=== PATIENT | male | born 1965 | race Caucasian/White ===

== ENCOUNTER → 2019-05-23 | Outpatient (CLI) | payer OTHER ==
[~2019-05-23] MED LIST: AMOX-355 PO; AUGMENTIN 500 MG PO; DULO60CA6 PO; HYDR1TAB PO; MNTL10T PO; MULT-608 PO; OMEG1CAP51 PO; PREDNISONE 20 MG PO; SIMV40TA4 PO
--- NOTE | 2019-05-23 15:43 | Diagnostic Imaging Report ---
PROCEDURE: CT sinuses without contrast TECHNIQUE: Multiple contiguous axial images were obtained through the sinuses without the use of intravenous contrast. Coronal and sagittal reformations were then performed. Auto Exposure Controls were utilized during the CT exam to meet ALARA standards for radiation dose reduction. INDICATION: Multiple sinus infections over the last 6 months. COMPARISON: No prior studies are available for comparison. FINDINGS: The frontal sinus is clear. There is very mild mucosal thickening of ethmoid air cells particularly on the right side. The sphenoid sinus is clear. The maxillary sinuses appear to be predominantly clear. No air-fluid levels are seen. Ostiomeatal complexes are patent. Nasal septum is midline. Mastoids appear to be well aerated. IMPRESSION: Mild ethmoid sinus mucosal disease. The study is otherwise unremarkable. Dictated by: Dictated on workstation # [id number]
== END ==
LOC: RAD FS 15:21
PROVIDERS: ATTEND Otolaryngology Otolaryngology/Facial Plastic Surgery
DX: J32.2 Chronic ethmoidal sinusitis (principal)
CPT/HCPCS: 70486

== ENCOUNTER → 2019-10-30 | Outpatient (CLI) | payer OTHER ==
--- NOTE | 2019-10-30 14:55 | Diagnostic Imaging Report ---
INDICATION: Pain in right wrist for 3 weeks. Time of exam 2:07 PM Multiple views right wrist were obtained. The distal radius and ulna are intact. The carpus appears intact. Metacarpals are unremarkable. No fractures are seen. IMPRESSION: No acute bony abnormality is detected. Dictated by: Dictated on workstation # [id number]
== END ==
LOC: RAD FS 13:46
PROVIDERS: ATTEND Nurse Practitioner
DX: M25.531 Pain in right wrist (principal)
CPT/HCPCS: 73110

== ENCOUNTER → 2020-01-12 | Outpatient (CLI) | payer OTHER ==
--- NOTE | 2020-01-12 10:42 | Diagnostic Imaging Report ---
Indication: Left knee pain. Time of exam: 9:52 AM 3 views of the left knee were obtained. Alignment is normal. There is mild medial and patellofemoral compartmental degenerative change with joint space narrowing and marginal spurring. No fracture, dislocation or effusion is seen. Impression: Degenerative changes. No acute bony abnormality is detected. Dictated by: Dictated on workstation # [id number]
== END ==
LOC: RAD FS 09:41
PROVIDERS: ATTEND Nurse Practitioner
DX: M17.12 Unilateral primary osteoarthritis, left knee (principal)
CPT/HCPCS: 73562

== ENCOUNTER → 2020-01-14 | Outpatient (CLI) | payer OTHER ==
--- NOTE | 2020-01-14 14:02 | Diagnostic Imaging Report ---
PROCEDURE: MRI left joint lower extremity without contrast. TECHNIQUE: Multiplanar, multisequence non contrast-enhanced MRI of the left lower extremity was accomplished. INDICATION: Left knee pain with prior left knee surgery in 2019. COMPARISON: Radiographs from 01/12/2020. FINDINGS: No acute fracture is seen in the left knee. Alignment is normal. There are marginal osteophytes and subcortical cyst-like change in all three compartments, as well as at the proximal tibiofibular joint. There is a large left knee joint effusion. The articular cartilage in the patellofemoral compartment demonstrates mild thinning with surface irregularity and fissuring but no large full-thickness defects. The articular cartilage in the medial compartment demonstrates eaeu-nmau-cjfgishom cartilage loss of the weightbearing aspect. The cartilage in the lateral compartment demonstrates marked heterogeneity with small subcentimeter full-thickness defects and surface irregularity. The medial meniscus demonstrates a complete radial tear through the posterior horn, with horizontal extension into the body. There appears to be a fragment flipped inferiorly into the meniscotibial recess. The lateral meniscus demonstrates a small radial tear at the free edge near the posterior root. The anterior cruciate ligament is intact. The posterior cruciate ligament is intact. The medial collateral ligament is bowed, but appears intact. The lateral collateral ligamentous complex is intact. The extensor mechanism is intact. The medial and lateral retinacula are intact. There is mild anterior subcutaneous edema. IMPRESSION: 1. Tricompartmental degenerative changes and cartilage loss in the left knee, most severe in the medial compartment. 2. Complete radial tear through the posterior horn of the medial meniscus. Small tear at the posterolateral meniscus. 3. Large left knee joint effusion. Dictated by: Dictated on workstation # [id number]
== END ==
LOC: RAD 12:03
PROVIDERS: ATTEND Nurse Practitioner
DX: S83.282A Other tear of lateral meniscus, current injury, left knee, initial encounter (principal); M17.12 Unilateral primary osteoarthritis, left knee; X58.XXXA Exposure to other specified factors, initial encounter
CPT/HCPCS: 73721

== ENCOUNTER → 2020-09-15 | Outpatient (CLI) | payer OTHER | LOC: LABNPT 05:29 | PROVIDERS: ATTEND Orthopaedic Surgery | DX: Z01.812 Encounter for preprocedural laboratory examination (principal); Z20.822 Contact with and (suspected) exposure to COVID-19 | CPT/HCPCS: 87635 ==

== ENCOUNTER 2020-10-14 10:24 | Outpatient (RCR) | payer OTHER | END 2020-10-14 11:18 | disposition home or self-care (01) | PROVIDERS: ATTEND Physician Assistant Medical | DX: M25.562 Pain in left knee (principal); Z98.890 Other specified postprocedural states ==

== ENCOUNTER 2021-03-17 15:54 | Outpatient (RCR) | payer OTHER | END 2021-03-18 | disposition home or self-care (01) | PROVIDERS: ATTEND Family Medicine | DX: M54.50 Low back pain, unspecified (principal); I10 Essential (primary) hypertension ==

== ENCOUNTER 2021-04-04 16:16 | Outpatient (RCR) | payer OTHER | END 2021-04-18 | disposition home or self-care (01) | PROVIDERS: ATTEND Family Medicine | DX: M54.50 Low back pain, unspecified (principal) ==

== ENCOUNTER → 2021-04-19 | Outpatient (CLI) | payer SELFPAY | LOC: LABNPT 08:21 → MERGE 08:21 | PROVIDERS: ATTEND Family Medicine | DX: U07.1 COVID-19 (principal) | CPT/HCPCS: 87635 ==

== ENCOUNTER → 2021-06-06 | Outpatient (CLI) | payer OTHER ==
--- NOTE | 2021-06-06 09:50 | Diagnostic Imaging Report ---
PROCEDURE: MRI lumbar spine. TECHNIQUE: Multiplanar, multisequence MRI of the lumbar spine was performed without contrast. DATE: June 06, 2021. COMPARISON: None. INDICATION: 55-year-old male, low back pain. FINDINGS: There is mild grade 1 anterolisthesis of L3 on L4. There is no evidence of a diffuse marrow infiltrating or replacing process. There are bilateral L3 pars interarticularis defects. There is no identified compression deformity or fracture. There is no focal concerning bone lesion. The visualized cord and conus medullaris is unremarkable and terminates at the T12-L1 level. There is mild disc height loss at L3-L4. There is moderate disc height loss at L5-S1. 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 L1-L2: There is no disc bulge. The facet joints and ligamentum flavum are unremarkable. There is no foraminal narrowing. There is no spinal canal stenosis. L2-L3: There is no disc bulge. There are mild left facet degenerative changes. There is a periarticular cyst adjacent to the anterior medial aspect of the left facet articulation which measures 9 x 9 x 13 mm in size and is projecting towards the left lateral aspect of the spinal canal and left lateral recess. There is associated severe narrowing of the left lateral recess and mild/moderate spinal stenosis. There is also severe left foraminal narrowing. L3-L4: There is diffuse disc bulge. There is mild narrowing of the bilateral lateral recesses. The facet joints and ligamentum flavum are unremarkable. There is severe bilateral foraminal narrowing. There is no high-grade spinal canal stenosis. L4-L5: There is no disc bulge. The facet joints and ligamentum flavum are unremarkable. There is no foraminal narrowing. There is no spinal canal stenosis. L5-S1: There is mild diffuse disc bulge. The facet joints and ligamentum flavum are unremarkable. There is severe bilateral foraminal narrowing. There is no spinal canal stenosis. IMPRESSION: 1. Grade 1 anterolisthesis of L3 on L4 relating to bilateral L5 pars interarticularis defects without adjacent marrow edema. 2. Disc and facet degenerative changes of the lumbar spine as described in detail level by level above. Findings are most notable at L2-L3, L3-L4, and L5-S1. 3. No identified compression deformity or fracture. Dictated by: Dictated on workstation # [id number]
== END ==
LOC: RAD 08:45
PROVIDERS: ATTEND Nurse Practitioner Family
DX: M51.27 Other intervertebral disc displacement, lumbosacral region (principal); M48.07 Spinal stenosis, lumbosacral region; M47.816 Spondylosis without myelopathy or radiculopathy, lumbar region; M43.16 Spondylolisthesis, lumbar region; M51.36 Other intervertebral disc degeneration, lumbar region
CPT/HCPCS: 72148

== ENCOUNTER 2021-09-12 14:20 | Outpatient (RCR) | payer OTHER | END 2021-09-12 16:10 | disposition home or self-care (01) | PROVIDERS: ATTEND Physician Assistant | DX: S83.241D Other tear of medial meniscus, current injury, right knee, subsequent encounter (principal); M17.11 Unilateral primary osteoarthritis, right knee; X58.XXXD Exposure to other specified factors, subsequent encounter ==

== ENCOUNTER → 2021-10-26 | Outpatient (CLI) | payer OTHER ==
--- NOTE | 2021-10-26 15:14 | Diagnostic Imaging Report ---
PROCEDURE: MRI right joint lower extremity without contrast. TECHNIQUE: Multiplanar, multisequence [id number]-[id number] MRI of the right lower extremity was accomplished. INDICATION: Knee pain for the last six months. No specific injury. EXAMINATION: Right lower extremity MRI without contrast, 10/26/2021. FINDINGS: The extensor mechanism is intact. Minimal T2 hyperintensity noted within the proximal aspect of the patellar tendon likely due to focal tendinosis. The ACL and PCL appear intact. The lateral collateral ligamentous complex is intact. There is diffuse thickening of the MCL likely due to prior sprain. Minimal overlying edema suggests possible superimposed acute sprain. No discontinuity is appreciated. The lateral meniscal body appears blunted consistent with a focal radial tear. The remaining lateral meniscus contains changes of myxoid degeneration. There is diffuse abnormal signal intensity throughout the posterior horn and body of the medial meniscus with a multidirectional degenerative type tear noted. This extends to involve the meniscal root. There is mild medial extrusion of the meniscus into the meniscal gutter. A focal radial tear within the posterior horn is noted. There is severe narrowing and loss of cartilage within the medial compartment with adjacent edema in the medial femoral condyle and medial tibial plateau. Mild loss of cartilage within the lateral joint compartment is noted. There is mild heterogeneity and loss of cartilage over the patella. There is a moderate amount of joint fluid which contains a focal linear hypointense line, nonspecific. A synovial plica is possible. A similar process is noted deep to the medial aspect of the patella. IMPRESSION: 1. Multidirectional tear of the posterior horn and body of the medial meniscus which includes a radial tear and abnormal signal involving the posterior horn of the meniscal root as well with medial extrusion of the meniscus into the meniscal gutter. 2. Suspected radial tear of the lateral meniscal body. 3. Findings of tendinosis along the proximal patellar tendon with possible MCL sprain. 4. Tricompartmental degenerative findings, most marked in the medial compartment. 5. Linear hypointensities within the joint fluid, nonspecific but synovial plica possible. Dictated by: Dictated on workstation # [id number]
== END ==
LOC: RAD 13:04
PROVIDERS: ATTEND Physician Assistant
DX: S83.241A Other tear of medial meniscus, current injury, right knee, initial encounter (principal); M17.11 Unilateral primary osteoarthritis, right knee; X58.XXXA Exposure to other specified factors, initial encounter
CPT/HCPCS: 73721

== ENCOUNTER 2021-11-14 13:00 | Outpatient (RCR) | payer OTHER | END 2021-11-16 | disposition home or self-care (01) | PROVIDERS: ATTEND Physician Assistant Medical | DX: S83.241D Other tear of medial meniscus, current injury, right knee, subsequent encounter (principal); I10 Essential (primary) hypertension; X58.XXXD Exposure to other specified factors, subsequent encounter ==

== ENCOUNTER 2021-12-05 15:37 | Outpatient (RCR) | payer OTHER | END 2021-12-05 16:35 | disposition home or self-care (01) | PROVIDERS: ATTEND Physician Assistant Medical | DX: S83.241D Other tear of medial meniscus, current injury, right knee, subsequent encounter (principal); I10 Essential (primary) hypertension; X58.XXXD Exposure to other specified factors, subsequent encounter ==

== ENCOUNTER → 2022-09-08 | Outpatient (CLI) | payer BC ==
--- NOTE | 2022-09-08 11:39 | Diagnostic Imaging Report ---
PROCEDURE: US Abdomen, limited. TECHNIQUE: Multiple realtime grayscale images were obtained over the abdomen in various projections. INDICATION: Lump in the upper abdomen. Sonographic interrogation of the area palpable abnormality in the upper abdomen was performed. There appears to be an abdominal wall defect present. During Valsalva there appears to be fat protruding through the defect into the subcutaneous tissues. No definite protruding bowel loops are detected. IMPRESSION: Findings most suggestive of a fat-containing ventral hernia. CT may be useful for better characterization. Dictated by: Dictated on workstation # [id number]
== END ==
LOC: RAD 07:21
PROVIDERS: ATTEND Nurse Practitioner Family
DX: R19.00 Intra-abdominal and pelvic swelling, mass and lump, unspecified site (principal)
CPT/HCPCS: 76705